=== PATIENT | female | born 1940 | race Caucasian/White ===

== ENCOUNTER 2018-03-06 10:15 | Emergency (ER) | payer MEDICARE ==
[2018-03-06 10:54] LABS: PLATELET COUNT, AUTOMATED 141 K/uL (150-450)
[2018-03-06 11:01] LABS: INR 2.36
--- NOTE | 2018-03-06 11:07 | RADIOLOGY IMAGING REPORT ---
FACILITY: [facility] PATIENT NAME: Jono Archuleta : 09/14/1957 MR: [id number] V: [id number] EXAM DATE: ORDERING PHYSICIAN: KAVITA SAWANT TECHNOLOGIST: Location: [facility] - [place], [place] Patient: Jono Archuleta : 09/14/1957 Visit/Account:[id number] Date of Sevice: 03/06/2018 Exam type: CHEST SINGLE AP History: Code Comparison: None. Findings: Heart is enlarged and postoperative changes noted from prior median sternotomy. There are prominent p ulmonary vascular and interstitial markings suggesting fluid overload with small bilateral pleural ef fusions. No appreciable pneumothorax. Lungs are hyperinflated suggesting underlying COPD NG tube projects over the stomach. ET tube projects 3.5 cm above the jt. The osseous structures demonstrate osteopenia. IMPRESSION: 1. Radiographic features suggest failure described above. 2. Cardiomegaly and postoperative changes are noted from prior median sternotomy. 3. Lines and tubes are described above. Report Dictated By: Davi Renteria MD at 03/06/2018 11:01 AM Report E-Signed By: Davi Renteria MD at 03/06/2018 11:03 AM WSN:[id number]
[2018-03-06 11:30] VITALS: BP 158/145
--- NOTE | 2018-03-06 11:44 | ER Report ---
History and Physical Time Seen By MD: 11:39 HPI/ROS CHIEF COMPLAINT: Cardiopulmonary Arrest HISTORY OF PRESENT ILLNESS: Patient is a 77-year-old female here in cardiopulmonary arrest. Patient was noted to be in respiratory distress while driving with her son on the highway and she became hypoxic and exhibited seizure -like activity per report. The son drove her to the emergency department unresponsive where she was met in the parking lot emergency department personnel who helped to remove her from the vehicle and get her into the resuscitation bay. Cardiopulmonary resuscitation was initiated immediately patient was placed on Cruz device then return of spontaneous circulation was achieved after approximately 11 minutes of PEA arrest. Patient received Narcan, and the D50, calcium chloride, resuscitation fluids. Patient was immediately intubated using a Glydescope 4 blade and 7.5 endotracheal tube after initially using BVM and suctioning since there was significant ammount of secretions present in the airway. Patient received supportive care for approximately 57 minutes and began to desat and become hypotensive on post intubated propofol sedation which was promptly ceased and norepi was administered. Patient was noted to have a history of CABG, HTN, HLD, CKD, CHF, Afib on anticoags and diuretics. Patient was driving from [place]. REVIEW OF SYSTEMS: Unable to obtain due to patient's mental status Past Medical/Surgical History Hypertension, Hyperlipidemia, CABG, Afib (anticoagulant use), CHF (Diuretic use) , CKD Constitutional Vital Sign - Last 24 Hours 03/06/18 03/06/18 03/06/18 03/06/18 10:15 10:18 10:21 10:25 Pulse ??? 151 B/P (MAP) 148/110 (123) 178/158 (165) Pulse Ox 100 03/06/18 03/06/18 03/06/18 03/06/18 10:27 10:30 10:33 10:35 Pulse 113 Resp 7 B/P (MAP) 195/120 (145) 142/95 (111) 142/94 (110) Pulse Ox 90 03/06/18 03/06/18 03/06/18 03/06/18 10:36 10:39 10:42 10:45 Pulse 113 Resp 25 B/P (MAP) 132/98 (109) 151/116 (128) 125/78 (94) 140/131 (134) Pulse Ox 92 6/23/03/06/18 03/06/18 03/06/18 10:48 10:51 10:52 10:54 B/P (MAP) 90/75 (80) 86/60 (69) 110/71 (84) 109/88 (95) 03/06/18 03/06/18 03/06/18 03/06/18 10:55 10:57 11:00 11:02 Pulse 108 Resp 20 B/P (MAP) 91/54 (66) 55/44 (48) 98/68 (78) Pulse Ox 80 03/06/18 03/06/18 03/06/18 03/06/18 11:05 11:06 11:09 11:12 Pulse 76 Resp 15 B/P (MAP) 60/25 (37) 73/60 (64) 93/76 (82) Pulse Ox 81 03/06/18 03/06/18 03/06/18 03/06/18 11:15 11:18 11:21 11:24 Pulse 58 Resp 27 B/P (MAP) 84/59 (67) 54/41 (45) 219/148 (171) 221/157 (178) Pulse Ox 67 03/06/18 03/06/18 03/06/18 03/06/18 11:25 11:27 11:30 11:32 Pulse 123 Resp 16 B/P (MAP) 190/133 (152) 158/145 (149) Pulse Ox 100 FiO2 100.0 03/06/18 03/06/18 03/06/18 03/06/18 11:35 11:45 11:55 12:05 Pulse 111 ? Resp 112 Pulse Ox 99 03/06/18 03/06/18 03/06/18 03/06/18 12:10 12:15 12:20 12:25 Pulse ? 03/06/18 03/06/18 03/06/18 03/06/18 12:30 12:35 12:40 12:45 Pulse ? 03/06/18 03/06/18 03/06/18 03/06/18 12:50 12:55 13:00 13:01 Pulse ? Physical Exam General Appearance: Unresponsive, ETT was placed for airway support Eyes: Pupuls 3 mm unreactive ENT, Mouth: Copious secretions prior to ETT placement Respiratory: Diminished lung sounds b/l Cardiovascular: Irregular rate and rhythm Gastrointestinal: Obese, distended abdomen Neurological: Unresponsive GCS 3 T Skin: Cool and pale Musculoskeletal: Neck is supple DIFFERENTIAL DIAGNOSIS: After history and physical exam differential diagnosis was considered for cardiac arrest, respiratory arrest, intracranial bleed, stroke, pneumothorax, cardiac tamponade, aortic dissection Medical Decision Making Data Points Result Diagram: 03/06/18 1032 03/06/18 1032 Laboratory Hematology Test 03/06/18 10:32 03/06/18 11:12 03/06/18 11:50 Red Blood Count 3.76 M/uL (4.17-5.56) Mean Corpuscular Volume 93.9 fL (80.0-96.0) Mean Corpuscular Hemoglobin 29.2 pg (26.0-33.0) Mean Corpuscular Hemoglobin Concent 31.1 g/dL (32.0-36.0) Red Cell Distribution Width 19.1 % (11.5-14.5) Mean Platelet Volume 9.6 fL (7.2-11.1) Neutrophils (%) (Auto) 65.8 % (39.4-72.5) Lymphocytes (%) (Auto) 25.1 % (17.6-49.6) Monocytes (%) (Auto) 7.5 % (4.1-12.4) Eosinophils (%) (Auto) 1.1 % (0.4-6.7) Basophils (%) (Auto) 0.5 % (0.3-1.4) Nucleated RBC Relative Count (auto) 0.8 /100WBC Neutrophils # (Auto) 5.2 K/uL (2.0-7.4) Lymphocytes # (Auto) 2.0 K/uL (1.3-3.6) Monocytes # (Auto) 0.6 K/uL (0.3-1.0) Eosinophils # (Auto) 0.1 K/uL (0.0-0.5) Basophils # (Auto) 0.0 K/uL (0.0-0.1) Nucleated RBC Absolute Count (auto) 0.07 K/uL Peripheral Blood Smear Yes Y/N Prothrombin Time 26.5 seconds (12.0-14.4) Prothromb Time International Ratio 2.36 Activated Partial Thromboplast Time 42 seconds (23-35) D-Dimer Quantitative (PE/DVT) 3.19 ug/ml (0-0.50) Sodium Level 134 mmol/L (137-145) Potassium Level 4.5 mmol/L (3.5-5.0) Chloride Level 99 mmol/L (98-107) Carbon Dioxide Level 14 mmol/L (22-31) Blood Urea Nitrogen 103 mg/dl (7-18) Creatinine 4.70 mg/dl (0.52-1.04) Glomerular Filtration Rate Calc 9.5 Random Glucose 376 mg/dl (75-110) Lactate 7.4 mmol/L (0.7-2.1) Calcium Level 8.0 mg/dl (8.4-10.2) Total Bilirubin 1.3 mg/dl (0.2-1.3) Aspartate Amino Transf (AST/SGOT) 33 U/L (0-35) Alanine Aminotransferase (ALT/SGPT) 22 U/L (0-56) Alkaline Phosphatase 149 U/L (0-126) Troponin I 0.163 ng/ml Total Protein 6.7 g/dl (6.3-8.2) Albumin 3.1 g/dl (3.5-5.0) Ammonia 139 UMOL/L (9-33) Blood Gas Puncture Site Left radial Blood Gas Patient Temperature 35.6 DEGREES Arterial Blood pH 7.13 (7.35-7.45) Arterial Blood Partial Pressure CO2 34 mmHg (32-37) Arterial Blood Partial Pressure O2 63 mmHg (60-80) Arterial Blood HCO3 12 mmol/L (20-26) Arterial Blood Oxygen Saturation 87 % (92-100) Arterial Blood Base Excess -18.0 mmol/L Km Test Nt avail Oxygen Liters/Minute 100% bag Chemistry Test 03/06/18 10:32 03/06/18 11:12 03/06/18 11:50 White Blood Count 7.9 k/uL (4.5-11.0) Red Blood Count 3.76 M/uL (4.17-5.56) Hemoglobin 11.0 g/dL (12.0-16.0) Hematocrit 35.3 % (34.0-47.0) Mean Corpuscular Volume 93.9 fL (80.0-96.0) Mean Corpuscular Hemoglobin 29.2 pg (26.0-33.0) Mean Corpuscular Hemoglobin Concent 31.1 g/dL (32.0-36.0) Red Cell Distribution Width 19.1 % (11.5-14.5) Platelet Count 141 K/uL (150-450) Mean Platelet Volume 9.6 fL (7.2-11.1) Neutrophils (%) (Auto) 65.8 % (39.4-72.5) Lymphocytes (%) (Auto) 25.1 % (17.6-49.6) Monocytes (%) (Auto) 7.5 % (4.1-12.4) Eosinophils (%) (Auto) 1.1 % (0.4-6.7) Basophils (%) (Auto) 0.5 % (0.3-1.4) Nucleated RBC Relative Count (auto) 0.8 /100WBC Neutrophils # (Auto) 5.2 K/uL (2.0-7.4) Lymphocytes # (Auto) 2.0 K/uL (1.3-3.6) Monocytes # (Auto) 0.6 K/uL (0.3-1.0) Eosinophils # (Auto) 0.1 K/uL (0.0-0.5) Basophils # (Auto) 0.0 K/uL (0.0-0.1) Nucleated RBC Absolute Count (auto) 0.07 K/uL Peripheral Blood Smear Yes Y/N Prothrombin Time 26.5 seconds (12.0-14.4) Prothromb Time International Ratio 2.36 Activated Partial Thromboplast Time 42 seconds (23-35) D-Dimer Quantitative (PE/DVT) 3.19 ug/ml (0-0.50) Glomerular Filtration Rate Calc 9.5 Lactate 7.4 mmol/L (0.7-2.1) Calcium Level 8.0 mg/dl (8.4-10.2) Total Bilirubin 1.3 mg/dl (0.2-1.3) Aspartate Amino Transf (AST/SGOT) 33 U/L (0-35) Alanine Aminotransferase (ALT/SGPT) 22 U/L (0-56) Alkaline Phosphatase 149 U/L (0-126) Troponin I 0.163 ng/ml Total Protein 6.7 g/dl (6.3-8.2) Albumin 3.1 g/dl (3.5-5.0) Ammonia 139 UMOL/L (9-33) Blood Gas Puncture Site Left radial Blood Gas Patient Temperature 35.6 DEGREES Arterial Blood pH 7.13 (7.35-7.45) Arterial Blood Partial Pressure CO2 34 mmHg (32-37) Arterial Blood Partial Pressure O2 63 mmHg (60-80) Arterial Blood HCO3 12 mmol/L (20-26) Arterial Blood Oxygen Saturation 87 % (92-100) Arterial Blood Base Excess -18.0 mmol/L Km Test Nt avail Oxygen Liters/Minute 100% bag Coagulation Test 03/06/18 10:32 Prothrombin Time 26.5 seconds Prothromb Time International Ratio 2.36 Activated Partial Thromboplast Time 42 seconds D-Dimer Quantitative (PE/DVT) 3.19 ug/ml EKG/Imaging EKG Interpretation Vent. Rate : 117 BPM Atrial Rate : 144 BPM P-R Int : 000 ms QRS Dur : 112 ms QT Int : 358 ms P-R-T Axes : 000 209 120 degrees QTc Int : 499 ms Atrial fibrillation with rapid ventricular response with premature ventricular or aberrantly conducted complexes Right superior axis deviation Low voltage QRS Cannot rule out Anterior infarct , age undetermined Abnormal ECG No previous ECGs available Monitor Interpretation: Atrial Fibrillation Imaging Exam type: CHEST SINGLE AP History: Code Comparison: None. Findings: Heart is enlarged and postoperative changes noted from prior median sternotomy. There are prominent pulmonary vascular and interstitial markings suggesting fluid overload with small bilateral pleural effusions. No appreciable pneumothorax. Lungs are hyperinflated suggesting underlying COPD NG tube projects over the stomach. ET tube projects 3.5 cm above the tj. The osseous structures demonstrate osteopenia. IMPRESSION: 1. Radiographic features suggest failure described above. 2. Cardiomegaly and postoperative changes are noted from prior median sternotomy. 3. Lines and tubes are described above. ED Course/Re-evaluation ED Course Patient is a 77-year-old female here in cardiopulmonary arrest. Patient was noted to be in respiratory distress while driving with her son on the highway and she became hypoxic and exhibited seizure-like activity per report. The son drove her to the emergency department unresponsive where she was met in the parking lot emergency department personnel who helped to remove her from the vehicle and get her into the resuscitation bay. Cardiopulmonary resuscitation was initiated immediately patient was placed on Cruz device then return of spontaneous circulation was achieved after approximately 11 minutes of PEA arrest. Patient received Narcan, and the D50, calcium chloride, resuscitation fluids. Patient was immediately intubated using a Glydescope 4 blade and 7.5 endotracheal tube after initially using BVM and suctioning since there was significant ammount of secretions present in the airway. Patient received supportive care for approximately 57 minutes and began to desat and become hypotensive on post intubated propofol sedation which was promptly ceased and norepi was administered. Patient was noted to have a history of CABG, HTN, HLD, CKD, CHF, Afib on anticoags and diuretics. Patient was driving from [place]. On initial evaluation, the patient was noted to have an obese distended abdomen which was found to have copious amounts of free fluid consistent with ascites on ultrasound at bedside. I also examined the lung goodwin with ultrasound and noted diffuse curly B lines consistent with pulmonary edema however lung sliding was present in all goodwin. There was no free fluid around the cardiac silhouette making cardiac temp had unlikely. Please see nursing note for further details of IV access and specific timing of events. During desaturation , patient was given rocuronium due to concern that thoracic and airway dynamics were precipitating difficulty ventilating and oxygenating. Chest x-ray also confirmed diffuse pulmonary edema and effusions which is also another possible etiology for difficulty ventilating. Of note, the patient had not been taking her diuretics since she was traveling via car and did not want to urinate frequently may have precipitated pulmonary edema especially in the setting of high altitude when compared to [place]. Labs were remarkable for lactate is 7.4, creatinine of 4.7, ABG showed pH of 7.1. Potassium was noted to be 4.1 and calcium was given prophylactically. Also troponin was noted to be 0.16 in spite of initial EKG showing A. fib RVR without ischemic changes. This was likely a type II cardiac injury secondary to etiology other than cardiac in origin. [facility] was contacted and flight crew helicopter arrived for patient transfer. I discussed my findings with (radio equipment repairer) at [facility] who accepted the patient. Patient was titrated on norepinephrine and epinephrine infusions prior to transfer. Decision to Disposition Date: Mar 06, 2018 Decision to Disposition Time: 13:00 Critical Care Time 120 minutes Transfer Facility [facility], Dr. Rosales was accepting physician Depart Departure Latest Vital Signs Vital Signs Date Time Temp Pulse Resp B/P (MAP) Pulse Ox O2 Delivery O2 Flow Rate FiO2 03/06/18 13:01 ??? 03/06/18 11:35 112 99 03/06/18 11:32 100.0 03/06/18 11:30 158/145 (149) Impression: Primary Impression: Cardiopulmonary arrest Condition: Critical Disposition: XFER TO [facility] ([facility]) KAVITA SAWANT DO Mar 06, 2018 11:44
[2018-03-06] MEDS ORDERED: PIPERACILLIN/TAZO*3.375GM VIAL 3.375 GM in NS(*) 0.9% 100 ML ADDVANT BAG 100 ML IVPB ONE (11:45)
[2018-03-06] MEDS ORDERED: VANCOMYCIN 1 GM ADDVIAL 1 GM in NS(*) 0.9% 250 ML ADDVAN BAG 250 ML IVPB ONE (11:45)
--- NOTE | 2018-03-06 14:47 | EKG ---
FACILITY: [facility] PATIENT NAME: VINITA MONTALVO : [id number] MR: [id number] V: [id number] EXAM DATE: ORDERING PHYSICIAN: KAVITA SAWANT TECHNOLOGIST: FELIX Vuong Reason : Blood Pressure : / mmHG Vent. Rate : 117 BPM Atrial Rate : 144 BPM P-R Int : 000 ms QRS Dur : 112 ms QT Int : 358 ms P-R-T Axes : 000 209 120 degrees QTc Int : 499 ms Atrial fibrillation with rapid ventricular response Indeterminate axis Poor R wave progression anteriorly Nonspecific T wave findings Artifact in several leads - repeat if needed Abnormal ECG No previous ECGs available Confirmed by JUAN PABLO ROBINS ([id number] on 03/07/2018 5:35:44 AM Referred By: SAVANA Confirmed By:JUAN PABLO ROBINS
== END 2018-03-06 13:00 | disposition short-term general hospital (02) ==
LOC: ER 10:17 → EDBD 10:17 → ER 13:00
DX: I46.9 Cardiac arrest, cause unspecified (principal); J81.1 Chronic pulmonary edema; R94.31 Abnormal electrocardiogram [ECG] [EKG]; E78.5 Hyperlipidemia, unspecified; Z79.01 Long term (current) use of anticoagulants; I50.9 Heart failure, unspecified; N18.9 Chronic kidney disease, unspecified; I48.91 Unspecified atrial fibrillation; I11.0 Hypertensive heart disease with heart failure; I12.9 Hypertensive chronic kidney disease with stage 1 through stage 4 chronic kidney disease, or unspecified chronic kidney disease
CPT/HCPCS: 36416; 36600; 71045; 82140; 82803; 82948; 83605; 84484; 85025; 85379; 85610; 85730; 93005; 94002; 99291; 99292; C1758; L0172; 82040; 82247; 82310; 82374; 82435; 82565; 82947; 84075; 84132; 84155; 84295; 84450; 84460; 84520; J0171; J3490

== ENCOUNTER → 2018-03-06 | Outpatient (REF) | LOC: AMB 10:59 | PROVIDERS: ATTEND Nurse Practitioner | DX: Z02.9 Encounter for administrative examinations, unspecified (principal) ==